=== PATIENT | female | born 1955 | race Caucasian/White ===

== ENCOUNTER → 2017-10-14 17:34 | Outpatient (CLI) | payer OTHER, SELFPAY ==
[2017-10-14 21:47] LABS: Amphetamine/Metha Screen,Urine Negative ng/mL (<1000); Barbiturates Screen,Urine Negative ng/mL (<200); Benzodiazepines Screen,Urine Negative ng/mL (200); Cannabinoid Screen,Urine Negative ng/mL (<50); Cocaine Screen,Urine Negative ng/g (<300); Methadone Screen,Urine Negative ng/mL (<300); Opiate Screen,Urine Positive ng/mL (<300); Phencyclidine Screen,Urine Negative ng/mL (<25)
[2017-10-25 11:12] LABS: Codeine Negative (Cutoff=100); Hydrocodone Negative (Cutoff=100); Hydromorphone Negative (Cutoff=100); Morphine Positive (.)
[2017-10-25 19:04] LABS: Opiates Positive (.)
== END ==
PROVIDERS: PCP Anesthesiology; Visit Provider Anesthesiology
DX: Z79.899 Other long term (current) drug therapy (principal)
CPT/HCPCS: 80305; 80361; 80365; G0480

== ENCOUNTER → 2017-11-17 14:30 | Outpatient (CLI) | payer OTHER, MEDICARE, SELFPAY ==
--- NOTE | 2017-11-17 14:51 | PC.PHONENOTE ---
The patient brought her bottle of medication to the office on 11/17/17. She notified the office that Dr. Martines prescribed her Hydrocodone/Acetaminaphine 7.5/325 on 11/13/17 for her stimulator surgery that was done on 11/13/17. LW
[2017-11-17 17:48] LABS: Amphetamine/Metha Screen,Urine Negative ng/mL (<1000); Barbiturates Screen,Urine Negative ng/mL (<200); Benzodiazepines Screen,Urine Negative ng/mL (200); Cannabinoid Screen,Urine Negative ng/mL (<50); Cocaine Screen,Urine Negative ng/g (<300); Methadone Screen,Urine Negative ng/mL (<300); Opiate Screen,Urine Negative ng/mL (<300); Phencyclidine Screen,Urine Negative ng/mL (<25)
[2017-11-24 03:32] LABS: Opiates Negative (Cutoff=100)
== END ==
PROVIDERS: PCP Family Medicine; Visit Provider Clinical Nurse Specialist Family Health
DX: Z79.899 Other long term (current) drug therapy (principal)
CPT/HCPCS: 80305; 80361; 80365; G0480

== ENCOUNTER 2017-11-28 11:27 | Day surgery (SDC) | payer OTHER, SELFPAY ==
[2017-11-28 11:39] VITALS: BP 118/68; PULSE 100; RESP 18; TEMP 36.6; O2SAT 100
--- NOTE | 2017-11-28 12:12 | HMH.PMPROC ---
- Procedure Date: 11/28/17 Time: 12:15 Anesthesiologist:: Joshua Guerra MD Complications:: None Pre-procedure Diagnosis:: Degenerative disc disease of the lumbar spine with lumbar radiculopathy Post-procedure Diagnosis:: Same Indications for Procedure:: Patient is a pleasant 62-year-old white female who presents today for pump refill. Patient has had a urine drug screen positive for marijuana in the past. Patient had been turned down to 2 mg per day of intrathecal morphine. Patient has since had several appropriate drug screens randomly over the last several months. Patient is interested in increasing her pain pump rate today. Patient rates her pain a 6 out of 10 today. Objective: Patient alert and oriented ?3. No acute distress noted. Motor strength of upper and lower extremities 5/5. There is no gross sensory deficits. Patient does have a slightly antalgic gait. Deep tendon reflexes normal. Procedure Details:: Informed consent was obtained and the risks and benefits of the procedure was explained to the patient. The patient was taken to the procedure room. The pump was interrogated. The area over the pump was prepped using ChloraPrep. The pump was accessed with a 22-gauge needle. Approximately 5 mL's of the intrathecal solution was withdrawn and discarded. The pump was then refilled with 20 mL's of intrathecal 25 mg/mL of morphine. The pump was interrogated and the infusion was increased from 2 mg a day to 2.5 mg a day. The patient tolerated the procedure well with no complication. Plan and Disposition:: We will increase the patient's intrathecal rate today to 2.5 mg/day. Patient and I had a long discussion that we will continue to do random drug screens and that she must continue to be appropriate in them. Patient understands. Patient states that her pain pump does more for her chronic pain than anything else. We will follow-up with this patient at her next pain pump refill. She has been instructed to call the office if she needs anything prior to this.
[2017-11-28 12:14] VITALS: BP 140/63; PULSE 98; RESP 18; O2SAT 98
[2017-11-28 12:18] VITALS: BP 144/73; PULSE 93; RESP 18; O2SAT 98
[2017-11-28 12:33] VITALS: BP 135/82; PULSE 92; RESP 20; O2SAT 100
--- NOTE | 2018-03-16 09:36 | PC.NURSE ---
NABUMETONE TABLET REFILLS 500MG BID FAXED TO [facility]
--- NOTE | 2018-05-18 08:23 | PC.NURSE ---
TIZANIDINE 4MG TID WITH 2 REFILLS FAXED TO [facility] IN [place]
== END 2017-11-28 12:40 | disposition home or self-care (01) ==
LOC: SC.PAINP 11:29
PROVIDERS: Family Provider Family Medicine; PCP Family Medicine; Visit Provider Anesthesiology
DX: M51.16 Intervertebral disc disorders with radiculopathy, lumbar region (principal)
CPT/HCPCS: 62370

== ENCOUNTER → 2018-08-18 10:59 | Outpatient (POV) | payer OTHER, SELFPAY ==
[2018-08-18 12:06] LABS: Amphetamine/Metha Screen,Urine Negative ng/mL (<1000); Barbiturates Screen,Urine Negative ng/mL (<200); Benzodiazepines Screen,Urine Negative ng/mL (<200); Cannabinoid Screen,Urine Negative ng/mL (<50); Cocaine Screen,Urine Negative ng/mL (<300); Methadone Screen,Urine Negative ng/mL (<300); Opiate Screen,Urine Positive ng/mL (<300); Phencyclidine Screen,Urine Negative ng/mL (<25)
[2018-08-18 12:22] VITALS: BP 153/81; PULSE 85; RESP 18; O2SAT 99; BMI 28.5
--- NOTE | 2018-08-18 12:52 | HMH.PMPROC ---
- Procedure Date: 08/18/18 Time: 11:55 Anesthesiologist:: Madyson Wagoner APRN Complications:: None Pre-procedure Diagnosis:: Degenerative disc disease lumbar spine with lumbar radiculopathy symptoms Post-procedure Diagnosis:: Same Indications for Procedure:: Patient is a pleasant 63-year-old white female who presents today for six-month follow-up. Patient has intrathecal pain pump with morphine going at 2.5 mg/day. Patient currently has 28 months left on her generator life. Patient is a home refill candidate. Patient's urine drug screen is appropriate today. Patient would like an increase today. Physical Exam General: Alert and oriented x3, no acute distress, pleasant and cooperative, [on room air] Lungs: Resps E/U, Symmetrical chest expansion, Eyes: PERRL Musculoskeletal: Flexion and extension of lumbar spine somewhat guarded secondary to pain, deep tendon reflexes normal, strength in upper and lower extremities [5/5], [abnormal gait noted] Neurological: speech clear, heater engineer helper equal, no gross sensory deficits Procedure Details:: Informed consent was obtained and the risk and benefits of the procedure were explained to the patient. The patient was taken to the procedure room where noninvasive monitoring was placed including noninvasive blood pressure cuff and pulse oximeter. Patient's pump was interrogated. The infusion rate was increased to 3 mg of morphine a day. The patient tolerated the procedure well. Plan and Disposition:: I will see the patient back in 6 months. Patient's been instructed to call the office if she has any issues prior to her next appointment. This note was dictated using voice recognition software and may contain errors or omissions
[2018-08-24 22:07] LABS: Codeine Negative (Cutoff=100); Hydrocodone Negative (Cutoff=100); Hydromorphone Negative (Cutoff=100); Morphine Positive (.)
[2018-08-25 05:59] LABS: Opiates Positive (.)
== END ==
PROVIDERS: PCP Family Medicine; Visit Provider Clinical Nurse Specialist Family Health
DX: M51.16 Intervertebral disc disorders with radiculopathy, lumbar region (principal)
CPT/HCPCS: 62368; 80305; 80361; 80365; G0480

== ENCOUNTER → 2019-02-08 14:40 | Outpatient (POV) | payer OTHER, SELFPAY ==
[2019-02-08 15:02] VITALS: BP 145/73; PULSE 91; RESP 18; O2SAT 98; BMI 29.2
--- NOTE | 2019-02-08 15:03 | HMH.PMPROC ---
- Procedure Date: 02/08/19 Time: 15:04 Anesthesiologist:: Madyson Wagoner APRN Complications:: None Pre-procedure Diagnosis:: Degenerative disc disease lumbar spine with lumbar radiculopathy symptoms Post-procedure Diagnosis:: Same Indications for Procedure:: Patient is a pleasant 63-year-old white female who presents today for she intrathecal pain pump reprogram. She is currently using home refill program. Patient's intrathecal pain pump is morphine 3 mg/day. Patient rates her pain a 7 out of 10 and states she needs a slight increase today. She denies side effects to her medication. She has 23 months left on her intrathecal pain pump. Physical Exam General: Alert and oriented x3, no acute distress, pleasant and cooperative, [on room air] Lungs: Resps E/U, Symmetrical chest expansion, Eyes: PERRL Musculoskeletal: Flexion and extension of lumbar spine somewhat guarded secondary to pain, deep tendon reflexes normal, strength in upper and lower extremities [5/5], [abnormal gait noted] Neurological: speech clear, photoengraving proofer equal, no gross sensory deficits Procedure Details:: Informed consent was obtained and the risk and benefits of the procedure were explained to the patient. The patient was taken to the procedure room where noninvasive monitoring was placed including noninvasive blood pressure cuff and pulse oximeter. Patient's pump was interrogated and reprogrammed. The infusion rate was increased from 3 mg/day to 3.75 mg/day of morphine. The patient tolerated the procedure well. Plan and Disposition:: We will follow-up with the patient 6 months reassess her symptoms at that time she is been instructed to call the office if she has any issues prior to her next appointment. Dr. Guerra has reviewed this note and agrees with this plan of care. This note was dictated using voice recognition software and may contain errors or omissions
== END ==
PROVIDERS: PCP Family Medicine; Visit Provider Clinical Nurse Specialist Family Health
DX: M51.16 Intervertebral disc disorders with radiculopathy, lumbar region (principal)
CPT/HCPCS: 62368

== ENCOUNTER → 2019-08-23 13:20 | Outpatient (POV) | payer OTHER, SELFPAY ==
[2019-08-23 13:41] VITALS: BP 115/65; PULSE 95; RESP 18; O2SAT 99; BMI 29.2
--- NOTE | 2019-08-23 13:49 | HMH.PAINSOAP ---
[facility] Pain Management SOAP Note Subjective:: Patient is a very pleasant 64-year-old white female who presents today for follow-up. She has been treated for low back pain with lumbar radiculopathy symptoms. She currently has an intrathecal pain pump that is a home refill. She has intrathecal therapy with morphine. She denies any side effects to her medications. Patient rates her pain a 3 out of 10 today. She denies any side effects to the medication. The patient's Jim #[id number] has been reviewed and is appropriate. Her urine drug screens are appropriate. Patient says that she is doing well overall with her intrathecal therapy. Review of Systems General: No recent weight changes, no fever, no sleep disturbances Respiratory: No cough, no shortness of air, no recurring pulmonary infections Cardiovascular/peripheral vascular: No chest pain, no palpitations, no edema, no shortness of breath Gastrointestinal: No new onset incontinence, normal bowel movements reported Genitourinary: No new onset incontinence Musculoskeletal: Low back pain Psychiatric: Normal mood/affect Neurological: [Denies weakness in extremities], [denies balance issues] Objective:: Physical exam General: Alert and oriented x3, no acute distress, pleasant and cooperative, [on room air] Lungs: Respirations even and unlabored, symmetrical chest expansion Eyes: PERRL Musculoskeletal: Flexion and extension of lumbar spine somewhat guarded secondary to pain, deep tendon reflexes normal, strength in upper and lower extremities [5/5], [abnormal gait noted] Neurological: Speech clear, pipeline superintendent equal, no gross sensory deficit Assessment:: Degenerative disc disease lumbar spine with lumbar radiculopathy symptoms Plan:: We will see the patient back in the clinic in 6 months for routine follow-up visit. In the meantime, she has been instructed to contact clinic if she has any concerns before her next appointment. She will continue with a home stretching program. Overall she is doing really well with her intrathecal therapy. Dr. Guerra has reviewed this note and agrees with this plan of care. This note was dictated using voice recognition software and make contain errors or omissions. [facility] History I have reviewed the patient's past medical history: Yes Medical History: Reports:: Cancer (breast, lung), Hyperlipidemia, Hypertension, Internal Pacemaker Denies:: Diabetes Mellitus Type 1, Diabetes Mellitus Type 2, MRSA *Have you ever received a pneumonia vaccine?: Yes *Have you received a flu vaccine this season?: Yes Other Medical History: Reports: Chemotherapy, Hypothyroidism, Radiation Therapy, Thyroid Disease Laterality Cases: Bilateral: Mastectomy Other Surgeries: Yes: Hysterectomy-Total, Pacemaker Amputation: No - *Social History Smoking Status: Never smoker Alcohol Intake: never Substance Use Type: marijuana *Occupational Status:: other Housing: house *Travel in the last 8 weeks: None Family Hx:: Cancer
== END ==
PROVIDERS: PCP Family Medicine; Visit Provider Clinical Nurse Specialist Family Health
DX: M51.16 Intervertebral disc disorders with radiculopathy, lumbar region (principal)
CPT/HCPCS: 99212

== ENCOUNTER → 2020-02-14 13:14 | Outpatient (POV) | payer OTHER, SELFPAY ==
[2020-02-14 13:34] VITALS: BP 116/63; PULSE 92; RESP 18; TEMP 36.6; O2SAT 99; BMI 29.5
--- NOTE | 2020-02-14 14:06 | HMH.PAINSOAP ---
[facility] Pain Management SOAP Note Subjective:: Patient is a pleasant 64-year-old white female who presents today for 6-month follow-up. She has a pain pump that is filled by home refill. Her urine drug screens have been appropriate. Patient rates her pain a 4 out of 10 and is doing well on her morphine infusion. She is currently on morphine 3.75 mg/day. She is coming near end-of-life. We will move to have her pump replaced in fall. ROS General: no recent weight change, no fever, no sleep disturbances Respiratory: no cough, no shortness of air, no recurring pulmonary infections Cardiovascular/Peripheral Vascular: No chest pain, No palpitations, no edema, no shortness of breath. Gastrointestinal: no new onset incontinence, normal bowel movements reported Genitourinary: no new onset incontinence Musculoskeletal: Back pain, leg pain Psychiatric: normal mood/ affect Neurological: [denies new onset weakness in extremities], [denies new onset balance issues] Objective:: Physical Exam General: Alert and oriented x3, no acute distress, pleasant and cooperative, [on room air] Lungs: Resps E/U, Symmetrical chest expansion, Eyes: PERRL Musculoskeletal: Flexion and extension of lumbar spine somewhat guarded secondary to pain, deep tendon reflexes normal, strength in upper and lower extremities [5/5], normal gait noted Neurological: speech clear, thoroughbred horse farm manager equal, no gross sensory deficits Assessment:: Degenerative disc disease lumbar spine with lumbar radiculopathy symptoms Plan:: We will plan on a pain pump replacement in 3 to 4 months. She is been instructed to call the office if she has any issues prior to her next appointment. She will continue with home refill at this time. Dr. Guerra has reviewed this note and agrees with this plan of care. This note was dictated using voice recognition software and may contain errors or omissions [facility] History I have reviewed the patient's past medical history: Yes Medical History: Reports:: Cancer (breast, lung), Hyperlipidemia, Hypertension, Internal Pacemaker Denies:: Diabetes Mellitus Type 1, Diabetes Mellitus Type 2, MRSA *Have you ever received a pneumonia vaccine?: Yes *Have you received a flu vaccine this season?: Yes Other Medical History: Reports: Chemotherapy, Hypothyroidism, Radiation Therapy, Thyroid Disease Laterality Cases: Bilateral: Mastectomy Other Surgeries: Yes: Hysterectomy-Total, Pacemaker Amputation: No - *Social History Smoking Status: Never smoker Alcohol Intake: never Substance Use Type: marijuana *Occupational Status:: other Housing: house *Travel in the last 8 weeks: None Family Hx:: Cancer
== END ==
PROVIDERS: PCP Family Medicine; Visit Provider Clinical Nurse Specialist Family Health
DX: M51.16 Intervertebral disc disorders with radiculopathy, lumbar region (principal)
CPT/HCPCS: 99212

== ENCOUNTER → 2020-09-26 12:36 | Outpatient (CLI) | payer OTHER, SELFPAY ==
[2020-09-26 13:17] LABS: Basophils % 0.7 % (0.1-2.0); Eosinophils # 0.1 K/mm3 (0.0-0.4); Eosinophils % 1.3 % (0.1-12.0); Hematocrit 30.8 % (37.0-47.0); Hemoglobin 10.2 g/dL (12.2-16.2); Lymphocytes % 32.5 % (10-50); Mean Corpuscular HGB Conc 33.2 g/dL (31.8-35.4); Mean Corpuscular Hemoglobin 31.8 pg (27.0-31.2); Mean Corpuscular Volume 95.9 fl (81-99); Monocytes # 0.5 K/mm3 (0.1-1.0); Monocytes % 7.2 % (1.7-9.3); Neutrophils # 3.6 K/mm3 (1.8-7.8); Neutrophils % 58.3 % (37.0-80.0); Platelet Count 288 K/mm3 (142-424); Red Blood Count 3.21 M/mm3 (4.20-5.40); Red Cell Distribution Width 13.9 % (11.5-17.5); White Blood Count 6.2 K/mm3 (4.8-10.8)
[2020-09-26 14:57] LABS: Anion Gap 11.1 mEq/L (5-15); Blood Urea Nitrogen 15 mg/dl (7-17); Calcium 9.3 mg/dl (8.4-10.2); Carbon Dioxide 35 mmol/L (22.0-30.0); Chloride 94 mmol/L (98-107); Estimated Glomerular Filt Rate 72 ml/min (>60); GFR (African American) 87 ML/MIN (>60); Glucose 97 mg/dl (74-100); Potassium 4.1 mmoL/L (3.5-5.1); Sodium 136 mmol/L (136-145)
[2020-09-26 15:09] LABS: Coronavirus 19 IgG Antibody Negative (Negative); Coronavirus 19 IgM Antibody Negative (Negative)
[2020-09-26 18:01] LABS: Barbiturates Screen,Urine Negative ng/ml (<200); Benzodiazepines Screen,Urine Negative ng/ml (<200)
[2020-09-26 18:02] LABS: Amphetamine/Metha Screen,Urine Negative ng/ml (<1000); Methadone Screen,Urine Negative ng/ml (<300)
[2020-09-26 18:03] LABS: Cannabinoid Screen,Urine Positive ng/ml (<50)
[2020-09-26 18:04] LABS: Cocaine Screen,Urine Negative ng/ml (<300)
[2020-09-26 18:05] LABS: Opiate Screen,Urine Positive ng/ml (<300); Phencyclidine Screen,Urine Negative ng/ml (<25)
== END ==
PROVIDERS: Visit Provider Anesthesiology
DX: Z01.812 Encounter for preprocedural laboratory examination (principal); Z11.52 Encounter for screening for COVID-19; M51.36 Other intervertebral disc degeneration, lumbar region
CPT/HCPCS: 36415; 80048; 80305; 85025; 86328

== ENCOUNTER 2020-09-27 07:02 | Day surgery (SDC) | payer OTHER, SELFPAY ==
[2020-09-25 11:05] VITALS: BMI 28.9
[2020-09-27] VITALS (8 sets, daily range): BP systolic 115–133; BP diastolic 59–95; PULSE 92–96; RESP 16–18; TEMP 36.4–36.7; O2SAT 95–99
--- NOTE | 2020-09-27 07:49 | P.PN_ITS ---
[facility] Anesthesia Checklist - Patient Identification Patient Identification: Arm Band, Verbal (Name & ) - Structural Data Admitted From: Home Planned Operative Procedure/s: pain pump change out Consent for Planned Operative Procedure(s) Verified: Yes Verified Documents: History and Physical - NPO Status Verified Time NPO: 00:00 - Chart Verification Results Verified: CBC, BMP - Additional verifications Patient : No Anesthesia Reactions: No Hx Blood Transfusions: No Blood Transfusion Reaction: No Cephalosporin Allergy: No Previous Colonoscopy: Yes - Cardiovascular Assessment Heart Sounds: S1 & S2 Pulse Strength: Baseline Pulse Rhythm: Regular Peripheral Edema: No - Airway Assessment C-Spine Mobility Assessed: Yes TMJ Mobility Assessed: Yes Dentition: Partials - Neurological Assessment Level of Consciousness: Awake, Alert, Appropriate Hx Seizures: No Numbness or tingling in extremities: No - Anesthesia Plan Anesthesia Risk discussed: Yes Anesthesia Plan: Verified ASA Class: III Anesthesia Type: MAC [facility] History I have reviewed the patient's past medical history: Yes Medical History: Reports:: Cancer (breast to lung), Hyperlipidemia, Hypertension, Internal Pacemaker Denies:: Diabetes Mellitus Type 1, Diabetes Mellitus Type 2, MRSA, Seizures *Have you ever received a pneumonia vaccine?: Yes *Have you received a flu vaccine this season?: Yes Other Medical History: Reports: Chemotherapy, Hypothyroidism, Radiation Therapy, Thyroid Disease. Denies: Blood Transfusion Reaction Anesthesia experience/problems:: none Laterality Cases: Right: Mastectomy, Other Other Surgeries: Yes: Hysterectomy-Total, Pacemaker Amputation: No - *Social History Last grade of school completed: High school graduate Smoking Status: Never smoker Alcohol Intake: never Substance Use Type: marijuana *Occupational Status:: disabled Housing: house *Travel in the last 8 weeks: None Family Hx:: Cancer
--- NOTE | 2020-09-27 08:39 | HMH.PMCON ---
Assessment and Plan - Assessment and plan all Dx Assessment and Plan for all problems:: Lqjiqngijc-zep-kv-life, pain pump generator Plan-removal and replacement of pain pump generator HPI - Data of Consult Patient: new to practice Consult date: 09/27/20 Requesting Physician: Joshua Guerra MD Primary Care Provider: Kiara Chirinos - Consult Narrative Reason for consult: End-of-life status, pain pump generator History of present illness: Ms. Trejo is a 65 year old female with chronic back pain in for her fourth change out of her pain pump generator. No complaints CC: Joshua Guerra MD [facility] History I have reviewed the patient's past medical history: Yes Medical History: Reports:: Cancer (breast to lung), Hyperlipidemia, Hypertension, Internal Pacemaker Denies:: Diabetes Mellitus Type 1, Diabetes Mellitus Type 2, MRSA, Seizures *Have you ever received a pneumonia vaccine?: Yes *Have you received a flu vaccine this season?: Yes Other Medical History: Reports: Chemotherapy, Hypothyroidism, Radiation Therapy, Thyroid Disease. Denies: Blood Transfusion Reaction Comment:: Pacemaker placement, pain pump placement x3, bladder stimulator placement, mastectomy, breast reconstruction, hysterectomy Anesthesia experience/problems:: none Laterality Cases: Right: Mastectomy, Other Other Surgeries: Yes: Hysterectomy-Total, Pacemaker Amputation: No - *Social History Last grade of school completed: High school graduate Smoking Status: Never smoker Alcohol Intake: never Substance Use Type: marijuana *Occupational Status:: disabled Housing: house *Travel in the last 8 weeks: None Family Hx:: Cancer Review of Systems - Review of Systems Review of systems:: pertinent systems reviewed and negative unless documented below Meds Home Medications Medication Instructions Recorded Confirmed Type Alendronate Sodium/Vitamin D3 1 each PO WEEKLY 11/28/17 09/27/20 History [Fosamax Plus D 70 mg-2,800 Iu] Apixaban [Eliquis] 5 mg PO BID 11/28/17 09/27/20 History Aspirin [Aspir 81] 81 mg PO DAILY 11/28/17 09/27/20 History Fluoxetine HCl [Prozac] 20 mg PO DAILY 11/28/17 09/27/20 History Furosemide [Furosemide 40MG tAB] 40 mg PO DAILY 11/28/17 09/27/20 History Levothyroxine Sodium 25 mcg PO DAILY 11/28/17 09/27/20 History [Levothyroxine 25mcg (0.025mg) Tab] Multivit-Min/FA/Lycopen/Lutein 1 each PO DAILY 11/28/17 09/27/20 History [Centrum Silver Tablet] Omeprazole [Omeprazole 20mg 20 mg PO DAILY 11/28/17 09/27/20 History Capsule] Potassium Chloride [Klor-Con 10mEq 10 meq PO DAILY 11/28/17 09/27/20 History tab] Pravastatin Sodium [Pravachol] 40 mg PO DAILY 11/28/17 09/27/20 History Tizanidine HCl 4 mg PO TID 11/28/17 09/27/20 History Umeclidinium Brm/Vilanterol Tr 1 each IH DAILY 11/28/17 09/27/20 History [Anoro Ellipta 62.5-25 Mcg INH] carvediloL [Carvedilol 6.25mg Tab] 6.25 mg PO DAILY 11/28/17 09/27/20 History clindamycin HCL [Clindamycin HCl] 300 mg PO TID #21 cap 09/27/20 Rx Allergies Allergy/AdvReac Type Severity Reaction Status Date / Time Sulfa (Sulfonamide Allergy Unknown UNKNOWN Verified 09/27/20 07:19 Antibiotics) [SULFA (SULFONAMIDE ANTIBIOTICS)] Objective Vital signs: Temp Pulse Resp BP Pulse Ox 98.0 F 96 H 18 131/87 98 09/27/20 07:25 09/27/20 07:25 09/27/20 07:25 09/27/20 07:25 09/27/20 07:25 no acute distress Comments: Healthy-appearing white female in no distress - *Routine Respiratory Exam Present: decreased breath sounds, CTA bilaterally - *Routine Cardiovascular Exam Present: RRR - *Routine Abdominal Exam Present: soft, normoactive bowel sounds. Absent: tenderness Comments: Left upper abdomen pain pump generator placement site
--- NOTE | 2020-09-27 10:08 | P.OP_ITS ---
Date of procedure: 09/27/20 Pre-op Diagnosis:: End-of-life, pain pump generator Post-op Diagnosis:: Same Procedure performed:: Removal and replacement of pain pump generator Surgeon:: Darnell Christian MD WATER TREATMENT PLANT REPAIRER:: Aleks Arambula, Efraín Hsu, José Miguel Yusuf, Vu Alvarenga, Other Anesthesia: MAC Estimated blood loss (mL): 5 Operative findings:: Not applicable Operative note:: Once adequate IV sedation was obtained the patient was placed on the operating table on her right side with her left abdomen and back prepped and draped in sterile fashion. Once adequate local anesthesia was obtained an incision was made over the generator with careful dissection the generator was delivered out of the incision without difficulty. Catheter ligated with a 2-0 silk ligature and the pump removed. At this point Dr. Guerra placed an intrathecal catheter in the intrathecal space to the area desired by Dr. Blevins. Catheter sutured to the underlying fascia with fixation devices and 2-0 Prolene suture. Utilizing the tunneling device the catheter was passed from the paraspinal incision to the pocket incision. Generator connected to the catheter which was placed in the pocket. CSF was aspirated from the generator noting patency of the system. Both pockets irrigated with antibiotic solution. Subcutaneous tissues closed with 2-0 Vicryl sutures. Skin closed with interrupted stitches of 4-0 nylon. Wound VAC dressing and binder applied to the wound. The patient taught procedure well was taken recovery room in stable condition. Upon recovery she will be discharged home will follow-up in 1 week for removal of the wound VAC dressing. Antibiotics x1 week per protocol. The patient tolerated the procedure well. Condition: stable Disposition: PACU Complications:: None
--- NOTE | 2020-09-27 10:11 | HMH.OPNOTE ---
Date of procedure: 09/27/20 Pre-op Diagnosis:: End-of-life intrathecal pain pump system for degenerative disc disease of lumbar spine with lumbar radiculopathy symptoms Post-op Diagnosis:: Same Procedure performed:: Replacement of intrathecal catheter with tunneling for placement of intrathecal pain pump system Surgeon:: Joshua Guerra MD INSTRUMENT AND CONTROL SERVICE PERSON:: Other Anesthesia: GETA Estimated blood loss (mL): 5 Clinical Note:: This patient is a pleasant 64-year-old white female who we are seeing for end-of-life intrathecal Medtronic pain pump. She is currently on intrathecal morphine at 3.9 mg/day. Her Medtronic pain pump is nearing end-of-life. She is at home refill patient with [facility]. She has less than 4 months left on her intrathecal infusion. We will change her catheter and pump out today. She is doing very well with her intrathecal morphine pain pump. She was on 3.9 mg/day of intrathecal morphine. We will replace her system and reduce her intrathecal morphine infusion to 3.5 mg/day. She has been off of her blood thinners for 5 days. Operative findings:: None Operative note:: Informed consent was obtained and the risk and benefits of the procedure was explained to the patient. Patient was taken to the operating room placed in a right lateral decubitus position. She was prepped and draped in sterile fashion. The Medtronic pump was explanted by Dr. Christian. The catheter was then tied off in the pocket. C-arm fluoroscopy was used to view the lumbar spine. The skin and subcutaneous tissues adjacent to the L4-5 and L5-S1 interspace were anesthetized using lidocaine. I made an incision and dissected down to the lumbar paraspinous fascia. A 14-gauge spinal needle was inserted and advanced into the L4-5 interspace until clear CSF was obtained. After this intrathecal catheter was inserted and advanced very easily to the L1 vertebral body. The stylette of the catheter and the needle were withdrawn. The catheter was secured to the fascia with anchoring devices and 2-0 Prolene. I refilled the pump with 20 mils of intrathecal morphine 10 mg/mL while Dr. Christian prepped the pocket. I tunneled the catheter from the back to the pump pocket and attached catheter to the pump. The pump was secured to the fascia with 2-0 Prolene. We were able to freely withdraw clear CSF through the side-port. Both incisions were irrigated bacitracin solution. Both incisions were then closed with 2-0 Vicryl followed by 4-0 nylon. A wound VAC was placed over the abdominal incision. The pump was interrogated and started at 3.5 mg/day of intrathecal morphine 10 mg/mL. Patient tolerated the procedure well with no complications. The patient was discharged home neurologically intact with good relief of pain symptoms. She was placed on postop antibiotics. Patient was discharged home neurologically intact with good relief of pain symptoms. Plan and disposition: We will follow-up with this patient in 1 week for wound check. We will also enroll her in the transit study. We will follow-up in 2 weeks for suture removal. If she has any problems or questions she is to call us back in the pain clinic. After she is cleared by us she will be released back to home infusion. Condition: stable Disposition: PACU Complications:: None
== END 2020-09-27 12:16 | disposition home or self-care (01) ==
LOC: OR 07:05
PROVIDERS: PCP Family Medicine; Visit Provider Anesthesiology
PROC: (CPT 62362; principal; 2020-09-27 08:30)
DX: M51.16 Intervertebral disc disorders with radiculopathy, lumbar region (principal); Z45.1 Encounter for adjustment and management of infusion pump; Z85.3 Personal history of malignant neoplasm of breast; Z85.118 Personal history of other malignant neoplasm of bronchus and lung; E78.5 Hyperlipidemia, unspecified; I10 Essential (primary) hypertension; Z95.0 Presence of cardiac pacemaker; E03.9 Hypothyroidism, unspecified; E07.9 Disorder of thyroid, unspecified; Z90.10 Acquired absence of unspecified breast and nipple; Z96.82 Presence of neurostimulator; F12.90 Cannabis use, unspecified, uncomplicated
CPT/HCPCS: 62362; 62350; 96374; C1755; C1772; J3370